=== PATIENT | male | born 1995 | race African-American/Black ===

== ENCOUNTER 2023-02-18 22:57 | Emergency (ER) | payer OTHER ==
[~2023-02-18] VITALS: Ht 180.3 cm; Wt 95.6 kg
[2023-02-18 22:59] VITALS: BP 131/72
[2023-02-19 00:22] LABS: HEMATOCRIT 45.9 % (42.0-52.0); HEMOGLOBIN 14.9 g/dl (13.5-17.5); MEAN CORPUSCULAR HEMOGLOBIN 27.7 pg (27.0-33.0); MEAN CORPUSCULAR HGB CONC 32.5 g/dl (32.0-36.5); MEAN CORPUSCULAR VOLUME 85.5 fl (80.0-96.0); PLATELET COUNT, AUTOMATED 235 10^3/uL (150-450); RED BLOOD COUNT 5.37 10^6/uL (4.30-6.10); WHITE BLOOD COUNT 3.3 10^3/uL (4.0-10.0)
[2023-02-19 00:40] LABS: ETHYL ALCOHOL (ETHANOL) < 0.003 % (0.000-0.010)
[2023-02-19 00:42] LABS: ACETAMINOPHEN LEVEL < 2.0 UG/ML (10.0-20.0); ALBUMIN 4.2 G/DL (3.2-5.2); ALKALINE PHOSPHATASE 87 U/L (46-116); ALT/SGPT 16 U/L (7.0-40); AST/SGOT 19 U/L (<34); BILIRUBIN,DIRECT 0.2 MG/DL (<0.4); BILIRUBIN,TOTAL 0.7 MG/DL (0.3-1.2); BLOOD UREA NITROGEN 17 MG/DL (9-23); CALCIUM LEVEL 8.9 MG/DL (8.5-10.1); CARBON DIOXIDE LEVEL 28 MMOL/L (20-31); CHLORIDE LEVEL 106 MMOL/L (98-107); CREATININE FOR GFR 1.23 MG/DL (0.70-1.30); GLOMERULAR FILTRATION RATE > 60.0 (>60); GLUCOSE, FASTING 110 MG/DL (60-100); SALICYLATE LEVEL < 3.0 MG/DL (<30); SODIUM LEVEL 140 MMOL/L (136-145)
[2023-02-19 00:44] LABS: THYROID STIMULATING HORMONE 1.801 uIU/ML (0.55-4.78)
[2023-02-19 00:50] LABS: AMPHETAMINES LEVEL URINE NEGATIVE (NEGATIVE); BENZODIAZEPINES URINE NEGATIVE (NEGATIVE); CANNABINOIDS URINE NEGATIVE (NEGATIVE); METHADONE URINE NEGATIVE (NEGATIVE); OPIATES URINE NEGATIVE (NEGATIVE); PHENCYCLIDINE URINE NEGATIVE (NEGATIVE)
[2023-02-19 00:51] LABS: BARBITURATES URINE NEGATIVE (NEGATIVE); COCAINE METABOLITE URINE NEGATIVE (NEGATIVE)
[2023-02-19] MEDS ORDERED: HOME MED LIST COMPLETE! XX SCH (01:25)
== END 2023-02-19 06:44 | disposition home or self-care (01) ==
LOC: M ED 22:57
DX: F43.9 Reaction to severe stress, unspecified (principal); F41.9 Anxiety disorder, unspecified; F17.200 Nicotine dependence, unspecified, uncomplicated

== ENCOUNTER 2023-07-03 15:51 | Inpatient (IN) | payer OTHER ==
[~2023-07-03] VITALS: Ht 180.3 cm; Wt 86.5 kg
[2023-07-03] MEDS ORDERED: NS 1,000 ML IV ONE (16:05)
[2023-07-03 16:53] LABS: BASO % 0.3 % (0.0-1.0); EOS % 0.6 % (0.0-3.0); HEMATOCRIT 51.6 % (42.0-52.0); LYMPH # 1.3 10^3/uL (1.5-5.0); LYMPH % 37.5 % (24.0-44.0); MEAN CORPUSCULAR HEMOGLOBIN 27.7 pg (27.0-33.0); MEAN CORPUSCULAR HGB CONC 32.9 g/dl (32.0-36.5); MEAN CORPUSCULAR VOLUME 84.2 fl (80.0-96.0); MONO # 0.3 10^3/uL (0.0-0.8); MONO % 8.7 % (2.0-8.0); NEUTROPHILS # 1.9 10^3/uL (1.5-8.5); NEUTROPHILS % 52.6 % (36.0-66.0); PLATELET COUNT, AUTOMATED 226 10^3/uL (150-450); RED BLOOD COUNT 6.13 10^6/uL (4.30-6.10); WHITE BLOOD COUNT 3.6 10^3/uL (4.0-10.0)
[2023-07-03 17:13] LABS: ETHYL ALCOHOL (ETHANOL) < 0.003 % (0.000-0.010)
[2023-07-03 17:14] LABS: ACETAMINOPHEN LEVEL 5.4 UG/ML (10.0-20.0); SALICYLATE LEVEL < 3.0 MG/DL (<30)
[2023-07-03 17:15] LABS: ALBUMIN 4.5 G/DL (3.2-5.2); ALKALINE PHOSPHATASE 73 U/L (46-116); ALT/SGPT 13 U/L (7.0-40); AST/SGOT 16 U/L (<34); BILIRUBIN,DIRECT 0.4 MG/DL (<0.4); BILIRUBIN,TOTAL 1.5 MG/DL (0.3-1.2); BLOOD UREA NITROGEN 17 MG/DL (9-23); CALCIUM LEVEL 9.7 MG/DL (8.5-10.1); CARBON DIOXIDE LEVEL 26 MMOL/L (20-31); CHLORIDE LEVEL 107 MMOL/L (98-107); CREATININE FOR GFR 1.23 MG/DL (0.70-1.30); GLOMERULAR FILTRATION RATE > 60.0 (>60); GLUCOSE, FASTING 84 MG/DL (60-100); SODIUM LEVEL 142 MMOL/L (136-145); TOTAL PROTEIN 7.6 G/DL (5.7-8.2)
[2023-07-03 17:17] LABS: THYROID STIMULATING HORMONE 1.463 uIU/ML (0.55-4.78)
[2023-07-03 17:18] LABS: RSV AMPLIFICATION NEGATIVE (NEGATIVE)
[2023-07-03 17:19] LABS: INR 1.14; PROTHROMBIN TIME 14.3 SECONDS (12.5-14.5)
[2023-07-03 17:20] LABS: CPK CREATINE PHOSPHOKINASE 84 U/L (46-171); PARTIAL THROMBOPLASTIN TIME 26.1 SECONDS (24.8-34.2)
[2023-07-03 17:35] LABS: OSMOLALITY SERUM 300 MOSM/KG (275-295)
[2023-07-03 18:31] LABS: AMPHETAMINES LEVEL URINE NEGATIVE (NEGATIVE); BARBITURATES URINE NEGATIVE (NEGATIVE); BENZODIAZEPINES URINE NEGATIVE (NEGATIVE); CANNABINOIDS URINE NEGATIVE (NEGATIVE); COCAINE METABOLITE URINE NEGATIVE (NEGATIVE); METHADONE URINE NEGATIVE (NEGATIVE); OPIATES URINE NEGATIVE (NEGATIVE); PHENCYCLIDINE URINE NEGATIVE (NEGATIVE)
[2023-07-03 21:24] LABS: ALBUMIN 3.9 G/DL (3.2-5.2); BILIRUBIN,DIRECT 0.4 MG/DL (<0.4); BILIRUBIN,TOTAL 1.4 MG/DL (0.3-1.2); TOTAL PROTEIN 6.8 G/DL (5.7-8.2)
[2023-07-04] MEDS ORDERED: MED REC CURRENTLY UNOBTAINABLE XX SCH (09:05)
[2023-07-05] MEDS ORDERED: HOME MED LIST COMPLETE! XX SCH (07:45)
[2023-07-05] MEDS ORDERED: MOM 30ML SUSPENSION UDC PO PRN (20:00)
[2023-07-05] MEDS ORDERED: MAALOX 30 ML SUSP *UDC PO PRN (20:00)
[2023-07-05] MEDS ORDERED: traZODone 50 MG TAB PO PRN (20:00)
[2023-07-05] MEDS ORDERED: ACETAMINOPHEN TAB 650MG DOSE (2X325MG) PO PRN (20:00)
[2023-07-05 21:05] VITALS: BP 124/56; TEMP 97.8; O2SAT 98
[2023-07-06 06:40] VITALS: BP 104/64; TEMP 97.9; O2SAT 100
[2023-07-06 16:19] VITALS: BP 124/59; TEMP 98.7; O2SAT 97
[2023-07-07 06:20] VITALS: BP 135/60; TEMP 98; O2SAT 98
[2023-07-07] MEDS: ESCITALOPRAM OXALATE 5MG TABLET (LEXAPRO) PO SCH (10:03)
[2023-07-07 18:16] VITALS: BP 144/65; TEMP 97.3; O2SAT 96
[2023-07-08 05:57] VITALS: BP 131/60; TEMP 98.3; O2SAT 100
[2023-07-08] MEDS: ESCITALOPRAM OXALATE 5MG TABLET (LEXAPRO) PO SCH (08:46)
[2023-07-08 16:29] VITALS: BP 135/60; TEMP 98.3; O2SAT 100
[2023-07-09 06:43] VITALS: BP 109/56; TEMP 97.9; O2SAT 100
[2023-07-09] MEDS: ESCITALOPRAM OXALATE 5MG TABLET (LEXAPRO) PO SCH (08:21)
[2023-07-09 16:18] VITALS: BP 130/65; TEMP 98.6; O2SAT 100
[2023-07-10 06:38] VITALS: BP 123/58; TEMP 98.2; O2SAT 98
[2023-07-10] MEDS: ESCITALOPRAM OXALATE 5MG TABLET (LEXAPRO) PO SCH (08:06)
[2023-07-10 15:46] VITALS: BP 125/72; TEMP 98.1; O2SAT 100
[2023-07-11 05:58] VITALS: BP 111/85; TEMP 98.7; O2SAT 97
[2023-07-11] MEDS: ESCITALOPRAM OXALATE 5MG TABLET (LEXAPRO) PO SCH (08:19)
[2023-07-11] MEDS ORDERED: LEXA5TAB13 PO (11:44)
== END 2023-07-11 14:04 | disposition home or self-care (01) | DRG 885 ==
LOC: M ED 15:51 → M PSY 07-05 18:59
PROVIDERS: ADMIT Student in an Organized Health Care Education/Training Program; ATTEND Student in an Organized Health Care Education/Training Program
DX: F32.1 Major depressive disorder, single episode, moderate (principal); F41.9 Anxiety disorder, unspecified; T39.1X2A Poisoning by 4-Aminophenol derivatives, intentional self-harm, initial encounter; Z63.5 Disruption of family by separation and divorce

== ENCOUNTER → 2024-02-09 | Outpatient (REF) ==
[~2024-02-09] MED LIST: LEXA5TAB13 PO
== END ==
LOC: M PLAIMG 10:11
PROVIDERS: ATTEND Nurse Practitioner Family
DX: M54.50 Low back pain, unspecified (principal)